=== PATIENT | male | born 1965 | race Caucasian/White ===

== ENCOUNTER 2019-07-27 09:52 | Emergency (ER) | payer MEDICAID ==
[~2019-07-27] VITALS: Ht 187.9 cm; Wt 91.6 kg
[2019-07-27] MEDS ORDERED: NAPROSYN500 MG PO (11:15)
[2019-07-27] MEDS ORDERED: CHLORZOXAZONE500 M2 PO (11:15)
== END 2019-07-27 11:00 | disposition home or self-care (01) ==
LOC: ED 09:52
DX: M54.42 Lumbago with sciatica, left side (principal); F17.200 Nicotine dependence, unspecified, uncomplicated

== ENCOUNTER 2020-09-07 17:30 | Emergency (ER) | payer MEDICAID ==
[~2020-09-07] VITALS: Wt 99.8 kg
[~2020-09-07 17:30] MED LIST: CHLORZOXAZONE500 M2 PO; NAPROSYN500 MG PO
[2020-09-07] MEDS ORDERED: MEDROL DOSEPAK4 MG PO (19:56)
[2020-09-07] MEDS ORDERED: NAPROSYN500 MG PO (19:56)
[2020-09-07] MEDS ORDERED: NORCO 5-325 TA1 EACH PO (19:56)
== END 2020-09-07 20:04 | disposition home or self-care (01) ==
LOC: ED 17:30
DX: M54.16 Radiculopathy, lumbar region (principal); F17.200 Nicotine dependence, unspecified, uncomplicated

== ENCOUNTER 2021-03-19 10:37 | Emergency (ER) | payer MEDICAID ==
[~2021-03-19] VITALS: Ht 187.9 cm; Wt 97.5 kg
[~2021-03-19 10:37] MED LIST changes: +MEDROL DOSEPAK4 MG PO; +NORCO 5-325 TA1 EACH PO
[2021-03-19] MEDS ORDERED: NAPROSYN500 MG PO (11:04)
[2021-03-19] MEDS ORDERED: CYCLOBENZAPRINE10 MG PO (11:04)
[2021-03-19] MEDS ORDERED: VOLTAREN100 GM T (11:04)
[2021-03-19] MEDS ORDERED: TYLENOL325 M1 PO (11:04)
== END 2021-03-19 11:17 | disposition home or self-care (01) ==
LOC: ED 10:37
DX: M54.5 Low back pain (principal); G89.29 Other chronic pain; Z79.899 Other long term (current) drug therapy

== ENCOUNTER 2024-11-03 05:34 | Emergency (ER) | payer MEDICAID ==
[~2024-11-03] VITALS: Ht 187.9 cm; Wt 95.3 kg
[~2024-11-03 05:34] MED LIST changes: +CYCLOBENZAPRINE10 MG PO; +TYLENOL325 M1 PO; +VOLTAREN100 GM T
[2024-11-03] MEDS ORDERED: Ketorolac Tromethamine 60 MG/2 ML VIAL IM ONE (06:20)
[2024-11-03] MEDS ORDERED: NAPROXEN250 MG PO (06:25)
== END 2024-11-03 06:44 | disposition home or self-care (01) ==
LOC: ED 05:34
DX: M25.511 Pain in right shoulder (principal); Z90.49 Acquired absence of other specified parts of digestive tract